=== PATIENT | male | born 1990 | race Caucasian/White ===

== ENCOUNTER 2017-06-14 17:34 | Emergency (ER) | payer BC ==
[2017-06-14] MEDS ORDERED: Sodium Chloride 0.9% 10 ML Syringe FLUSH PRN ×2 (17:52→17:53)
[2017-06-14] MEDS ORDERED: Ondansetron 4 MG/2 ML SDV IVPUSH ONE (17:55)
--- NOTE | 2017-06-14 18:06 | EDM.PDOC ---
ED HPI GENERAL MEDICAL PROBLEM - General Chief Complaint: Gastrointestinal Problem Stated Complaint: VOMITING; DIABETIC Time Seen by Provider: 06/14/17 17:51 Source of Information: Reports: Patient - Related Data Allergies Allergy/AdvReac Type Severity Reaction Status Date / Time erythromycin base Allergy Other Verified 06/14/17 19:24 [From Pediazole] sulfisoxazole Allergy Other Verified 06/14/17 19:24 [From Pediazole] ED ROS GENERAL - Review of Systems Review Of Systems: See Below Constitutional: Reports: No Symptoms HEENT: Reports: No Symptoms Respiratory: Reports: No Symptoms Cardiovascular: Reports: No Symptoms Endocrine: Reports: High Glucose GI/Abdominal: Reports: Nausea, Vomiting Musculoskeletal: Reports: No Symptoms Skin: Reports: No Symptoms Neurological: Reports: No Symptoms ED EXAM, GI/ABD - Physical Exam Exam: See Below Exam Limited By: No Limitations General Appearance: Alert, No Apparent Distress Ears: Hearing Grossly Normal Nose: Normal Inspection Throat/Mouth: Normal Inspection, Normal Lips Head: Atraumatic, Normocephalic Neck: Normal Inspection, Supple, Non-Tender Respiratory/Chest: No Respiratory Distress, Lungs Clear, Normal Breath Sounds Cardiovascular: Regular Rate, Rhythm, No Edema GI/Abdominal Exam: Soft, Non-Tender, No Distention Extremities: Normal Inspection, Non-Tender, No Pedal Edema, Normal Capillary Refill Neurological: Alert, Oriented Psychiatric: Normal Affect, Normal Mood Skin Exam: Warm, Dry, Normal Color Lymphatic: No Adenopathy Course - Vital Signs Last Recorded V/S: Last Vital Signs Temp 97.9 F 06/14/17 20:25 Pulse 97 06/14/17 20:25 Resp 20 06/14/17 20:25 BP 130/68 06/14/17 20:25 Pulse Ox 100 06/14/17 20:25 - Orders/Labs/Meds Orders: Active Orders 24 hr Category Date Time Status Peripheral IV Insertion Adult [OM.PC] Urgent Oth 06/14/17 17:53 Ordered Labs: Laboratory Tests 06/14/17 06/14/17 06/14/17 Range/Units 17:55 18:00 18:00 WBC 11.6 H (4.0-11.0) K/uL RBC 5.24 (4.50-6.50) M/uL Hgb 14.7 (13.0-18.0) g/dL Hct 39.8 L (40.0-54.0) % MCV 76 (76-96) fL MCH 28.1 (27.0-32.0) pg MCHC 36.9 H (31.0-35.0) g/dL RDW 12.6 (11.0-16.0) % Plt Count 217 (150-400) K/uL MPV 10.2 H (6.0-10.0) fL Neut % (Auto) 91.1 H (45.0-70.0) % Lymph % (Auto) 6.5 L (20.0-40.0) % [place] % (Auto) 2.0 L (3.0-10.0) % Eos % (Auto) 0.1 L (1.0-5.0) % Baso % (Auto) 0.3 (0.0-0.5) % Neut # (Auto) 10.53 H (2.00-7.50) K/uL Lymph # (Auto) 0.75 L (1.50-4.00) K/uL [place] # (Auto) 0.23 (0.20-0.80) K/uL Eos # (Auto) 0.01 L (0.04-0.40) K/uL Baso # (Auto) 0.03 (0.02-0.10) K/uL Sodium 140 (136-145) mmol/L Potassium 4.2 (3.5-5.1) mmol/L Chloride 101 (98-107) mmol/L Carbon Dioxide 23.4 (21.0-32.0) mmol/L Anion Gap 19.8 H (5.0-15.0) mmol/L BUN 19 (8-26) mg/dL Creatinine 1.04 (0.70-1.30) mg/dL Est Cr Clr Drug Dosing TNP Estimated GFR (MDRD) > 60 (>60) MLS/MIN BUN/Creatinine Ratio 18.3 (6-25) Glucose 324 H (74-100) mg/dL Calcium 9.5 (8.5-10.1) mg/dL Total Bilirubin 1.1 H (0.0-1.0) mg/dL AST 17 (15-37) U/L ALT 31 (12-78) U/L Alkaline Phosphatase 21 L (46-116) U/L Total Protein 8.1 (6.4-8.2) g/dL Albumin 4.7 (3.4-5.0) g/dL Globulin 3.4 (2.2-4.2) g/dL Albumin/Globulin Ratio 1.4 (0.8-2.0) Urine Color Yellow Urine Appearance Clear (CLEAR) Urine pH 6.0 (5.0-8.0) Ur Specific [place] 1.020 (1.003-1.030) Urine Protein Negative (NEGATIVE) mg/dL Urine Glucose (UA) 500 H (NEGATIVE) mg/dL Urine Ketones >=160 H (NEGATIVE) mg/dL Urine Occult Blood Negative (NEGATIVE) Urine Nitrite Negative (NEGATIVE) Urine Bilirubin Negative (NEGATIVE) Urine Urobilinogen 0.2 (0.2-1.0) E.U./dL Ur Leukocyte Esterase Negative (NEGATIVE) Urine RBC Not seen /HPF Urine WBC Not seen /HPF Meds: Medications Discontinued Medications Generic Name Dose Route Start Last Admin Trade Name Freq PRN Reason Stop Dose Admin Al Hydroxide/Mg Hydroxide 30 ml 06/14/17 19:25 06/14/17 19:26 Gi Cocktail PO 06/14/17 19:26 30 ml ONETIME ONE Administration Pantoprazole Sodium 80 mg/ 100 mls @ 200 mls/hr 06/14/17 18:07 06/14/17 18:25 Sodium Chloride IV 06/14/17 18:36 200 mls/hr .BOLUS ONE Administration Sodium Chloride 1,000 mls @ 125 mls/hr 06/14/17 18:30 06/14/17 18:20 Normal Saline IV 125 mls/hr ASDIRECTED ELSI Administration Ondansetron HCl 4 mg 06/14/17 17:55 06/14/17 18:05 Zofran IVPUSH 06/14/17 17:56 4 mg ONETIME ONE Administration Pantoprazole Sodium Confirm 06/14/17 18:15 06/14/17 19:18 Protonix Iv Administered 06/14/17 18:16 Not Given Dose 80 mg .ROUTE .STK-MED ONE Sodium Chloride 10 ml 06/14/17 17:52 06/14/17 19:21 Saline Flush FLUSH 10 ml ASDIRECTED PRN Administration Vomiting Sodium Chloride 10 ml 06/14/17 17:53 Saline Flush FLUSH ASDIRECTED PRN Keep Vein Open - Re-Assessments/Exams Free Text/Narrative Re-Assessment/Exam: 06/14/17 20:39 Pt feeling better after infusion of 1 Liter Nacl, Protonix of 80 mg IV X1, Zofran 4 mg IV and GI cocktail. Recommend medications as at home. Pt has Zofran for nausea at home and does have Prilosec for GERD. He is diabetic Type 1 and will continue with his insulin as prescribed. He is with his dad and is feeling better. Departure - Departure Time of Disposition: 20:31 Disposition: Home, Self-Care 01 Condition: Good Clinical Impression: Vomiting, Gastroenteritis, Diabetes mellitus - Discharge Information Referrals: PCP,None [Primary Care Provider] - Forms: ED Department Discharge Additional Instructions: Take Zofran and Prilosec as oredered. - Problem List & Annotations (1) Diabetes mellitus SNOMED Code(s): 94188620 Code(s): E11.9 - TYPE 2 DIABETES MELLITUS WITHOUT COMPLICATIONS Status: Acute (2) Gastroenteritis SNOMED Code(s): 04782810 Code(s): K52.9 - NONINFECTIVE GASTROENTERITIS AND COLITIS, UNSPECIFIED Status: Acute (3) Vomiting SNOMED Code(s): 774106545 Code(s): R11.10 - VOMITING, UNSPECIFIED Status: Acute - Problem List Review Problem List Initiated/Reviewed/Updated: Yes - My Orders Last 24 Hours: My Active Orders 06/14/17 17:53 Peripheral IV Insertion Adult [OM.PC] Urgent - Assessment/Plan Last 24 Hours: My Active Orders 06/14/17 17:53 Peripheral IV Insertion Adult [OM.PC] Urgent Plan: Discharge to self care with assist of Dad. Continue with Zofran as needed for nausea and Prilosec daily. Continue with Lantus and insulin as ordered. Return to ER if condition worsens and return to PCP upon return to home.
[2017-06-14] MEDS ORDERED: Pantoprazole 80 MG in Sodium Chloride 0.9% 100 ML IV ONE (18:07)
[2017-06-14] MEDS ORDERED: Pantoprazole 40 MG Vial ONE (18:15)
[2017-06-14] MEDS ORDERED: Sodium Chloride 0.9% 1,000 ML IV SCH (18:30)
[2017-06-14] MEDS ORDERED: GI Cocktail Oral Solution 30 ML PO ONE (19:25)
== END 2017-06-14 20:31 | disposition home or self-care (01) ==
LOC: LB.ED 17:34
DX: K52.9 Noninfective gastroenteritis and colitis, unspecified (principal); K21.9 Gastro-esophageal reflux disease without esophagitis; E10.9 Type 1 diabetes mellitus without complications; Z88.1 Allergy status to other antibiotic agents
CPT/HCPCS: 36415; 80053; 81001; 85025; 96365; 96375; 99284; A9270; C9113; J2405; J7030; J7040; J7050

== ENCOUNTER 2017-06-15 08:06 | Inpatient (IN) | payer BC ==
--- NOTE | 2017-06-15 08:46 | EDM.PDOC ---
ED HPI GENERAL MEDICAL PROBLEM - General Time Seen by Provider: 06/15/17 08:15 Source of Information: Reports: Patient History Limitations: Reports: No Limitations - History of Present Illness INITIAL COMMENTS - FREE TEXT/NARRATIVE: Pt is 26 year old male with IIDM form [facility],has been vomiting since the night before, he had some beer that night and woke up yesterday vomiting and it has not got better. He was diagnosed with GERD 6 months ago and has been on prilosec. Vomiting is constant and contains clear to yellowish green fluid, + bilous vomitus with bitter taste in mouth. He has not been able to eat or keep any food down for about good 24 hrs now. Pt was seen last night and his blood sugar was 325 with normal electrolyte. He was given 1 litre of NS and protonix 80mg IV and Iv zofran and discharged home. Apparently patient has not been feeling any better and his nausea has not cleared. C/o epigastric pain and pain in his lower back from vomiting. No fever or chills. No cough or productive sputum. No URI symptoms. Pt claims last episode of his DKA was on 04/25/17. He did take his lantus 55 units yesterday morning. He took 3 units novolog last night when he noticed his blood sugar was 250.He was on insulin pump for a while and went off as insurance did not cover it. Onset Date: 06/14/17 Duration: Day(s): Location: Reports: Abdomen Quality: Reports: Ache Severity: Moderate Improves with: Reports: None Worsens with: Reports: None Associated Symptoms: Reports: Loss of Appetite, Nausea/Vomiting. Denies: Confusion, Chest Pain, Cough, Diaphoresis, Fever/Chills, Headaches, Rash, Seizure, Shortness of Breath, Syncope, Weakness - Related Data Allergies Allergy/AdvReac Type Severity Reaction Status Date / Time erythromycin base Allergy Other Verified 06/15/17 08:17 [From Pediazole] sulfisoxazole Allergy Other Verified 06/15/17 08:17 [From Pediazole] Home Meds: Home Meds Citalopram Hydrobromide [Celexa] 10 mg PO DAILY 06/14/17 [History] Insulin Aspart [NovoLOG] 2 units SQ TIDMEALS 06/14/17 [History] Insulin Glargine,Hum.Rec.Anlog [Lantus Solostar] 55 units SQ DAILY 06/14/17 [ History] Levocetirizine Dihydrochloride [Xyzal] 5 mg PO DAILY 06/14/17 [History] Ondansetron HCl [Zofran] 4 mg PO TID 06/14/17 [History] atorvaSTATin [Lipitor] 10 mg PO DAILY 06/14/17 [History] Past Medical History Gastrointestinal History: Reports: GERD Neurological History: Reports: Migraines Psychiatric History: Reports: Depression Endocrine/Metabolic History: Reports: Diabetes, Type I Social & Family History - Family History Family Medical History: Noncontributory - Tobacco Use Smoking Status *Q: Never Smoker Second Hand Smoke Exposure: No - Caffeine Use Caffeine Use: Reports: Soda - Alcohol Use Days Per Week of Alcohol Use: 0 - Recreational Drug Use Recreational Drug Use: Yes Drug Use in Last 12 Months: Yes Recreational Drug Type: Reports: Marijuana/Hashish Recreational Drug Use Frequency: Weekly ED ROS GENERAL - Review of Systems Review Of Systems: See Below Constitutional: Reports: Weakness, Fatigue. Denies: Fever, Chills, Malaise HEENT: Denies: Ear Discharge, Ear Pain, Eye Pain, Rhinitis, Throat Pain, Throat Swelling Respiratory: Denies: Shortness of Breath, Wheezing, Pleuritic Chest Pain, Cough , Sputum Cardiovascular: Denies: Chest Pain, Lightheadedness GI/Abdominal: Reports: Abdominal Pain, Nausea, Vomiting. Denies: Constipation, Diarrhea, Distension : Denies: Flank Pain, Frequency, Urgency, Urinary Retention Musculoskeletal: Denies: Joint Pain, Joint Swelling Skin: Denies: Mottled, Pallor, Bruising, Pruritis, Rash Neurological: Denies: Confusion, Dizziness, Paresthesia, Tremors, Difficulty Walking, Weakness Psychiatric: Denies: Anxiety, Confusion ED EXAM, GENERAL - Physical Exam Exam: See Below Exam Limited By: No Limitations General Appearance: Alert, WD/WN, Moderate Distress Eye Exam: Bilateral Eye: EOMI, PERRL Ears: Normal External Exam, Normal Canal, Hearing Grossly Normal, Normal TMs Ear Exam: Bilateral Ear: Auricle Normal, Canal Normal, TM normal Nose: Normal Inspection, Normal Mucosa, No Blood Throat/Mouth: Normal Inspection, Normal Lips, Normal Teeth, Normal Gums, Normal Oropharynx, Normal Voice, No Airway Compromise Head: Atraumatic, Normocephalic Neck: Normal Inspection, Supple, Non-Tender, Full Range of Motion Respiratory/Chest: No Respiratory Distress, Lungs Clear, Normal Breath Sounds, No Accessory Muscle Use, Chest Non-Tender Cardiovascular: Normal Peripheral Pulses, Regular Rate, Rhythm, No Edema, No Gallop, No JVD, No Murmur, No Rub Peripheral Pulses: 2+: Radial (L), Radial (R), Dorsalis Pedis (L), Dorsalis Pedis (R) GI/Abdominal: Normal Bowel Sounds, Soft, No Distention, No Mass, Tender (tender in the epigastric region). No: Guarding, Rigid, Rebound Back Exam: Normal Inspection, Full Range of Motion, NT Extremities: Normal Inspection, Normal Range of Motion, Non-Tender, Normal Capillary Refill, No Pedal Edema Neurological: Alert, Oriented, CN II-XII Intact, Normal Cognition, Normal Gait, Normal Reflexes, No Motor/Sensory Deficits Course - Vital Signs Text/Narrative:: Pt is a 26 year old IDDM presenting with sudden onset of nausea and vomiting since yesterday morning, after having some alcohol and not eating well. He has been having extreme vomiting for 24 hrs now. His CBC shows mild elevation of white count with 81 neutrophilia. His BMp show normal electrolytes. Urine ketones are positive at more than 160 and his serum ketones are positive. His blood sugar today is 375 and has been high since last night. he has taken his lantus insulin and very small dose on 3 unit novolog last night. His CXR and CT abdomen are normal. His amylase and lipase are normal. This does appear like partially treated DKA, as he has had 2 litres of fluids since last night IV, and has taken some dose of his insulin too. He has large anion of 26 up from 19 last night, has positive urine and serum ketones. Plan is to admit patient to inpatient. HE needs IV hydration. Will start him on insluin drip at 0.05 units/kg/hr dosing as his sugars are not too high and also he dose not have electrolyte imbalance. I prefer the drip to be around Will monitor his urinary ketones and BMP every 4hrs. Will keep him NPO until his Ketones clear and sugars stabilized. He has received 80mg of protonix last night , might not need another dose. Will control his nausea with zofran. Last Recorded V/S: Last Vital Signs Temp 97.7 F 06/15/17 09:43 Pulse 63 06/15/17 09:43 Resp 18 06/15/17 09:43 BP 125/54 L 06/15/17 09:43 Pulse Ox 100 06/15/17 09:43 - Orders/Labs/Meds Orders: Active Orders 24 hr Category Date Time Status Patient Status [ADT] Routine ADT 06/15/17 10:20 Ordered Bedrest Bathroom Privileges [RC] ASDIRECTED Care 06/15/17 10:20 Ordered Blood Glucose Check, Bedside [RC] Q1HR Care 06/15/17 10:20 Ordered Height and Weight [RC] DAILY Care 06/15/17 10:20 Ordered Intake and Output [RC] QSHIFT Care 06/15/17 10:22 Ordered Oxygen Therapy [RC] PRN Care 06/15/17 10:20 Ordered VTE/DVT Education [RC] Per Unit Routine Care 06/15/17 10:20 Ordered Vital Signs [RC] Q4H Care 06/15/17 10:20 Ordered Nothing per Oral Now Diet [DIET] Diet 06/15/17 Lunch Ordered Abdomen Pelvis w Cont [CT] Stat Exams 06/15/17 09:12 Ordered Chest 2V [CR] Stat Exams 06/15/17 09:17 Taken BASIC METABOLIC PANEL,BMP [CHEM] Routine Lab 06/15/17 13:20 Ordered KETONES,BLOOD [CHEM] Stat Lab 06/15/17 13:25 Ordered Insulin Regular, Human [NovoLIN R] 100 unit Med 06/15/17 10:30 Ordered Sodium Chloride 0.9% [Normal Saline] 100 ml IV TITRATE Ondansetron [Zofran] Med 06/15/17 10:20 Ordered 4 mg IV Q6H PRN Pantoprazole [ProTONIX IV] 40 mg Med 06/16/17 08:00 Ordered Sodium Chloride 0.9% [Normal Saline] 100 ml IV DAILY Sodium Chloride 0.9% @ 125 MLS/HR (1000ml) Med 06/15/17 10:30 Ordered Sodium Chloride 0.9% [Normal Saline] 1,000 ml IV ASDIRECTED Sodium Chloride 0.9% [Saline Flush] Med 06/15/17 10:20 Ordered 10 ml FLUSH ASDIRECTED PRN Peripheral IV Insertion Adult [OM.PC] Routine Oth 06/15/17 10:20 Ordered Resuscitation Status Routine Resus Stat 06/15/17 10:20 Ordered Medication Orders Insulin Human Regular 100 unit (/ Sodium Chloride) 100 mls @ 0.5 mls/hr IV TITRATE ELSI; 0.05 UNITS/KG/HR PRN Reason: Protocol Pantoprazole Sodium 40 mg/ (Sodium Chloride) 100 mls @ 200 mls/hr IV DAILY ELSI Sodium Chloride (Normal Saline) 1,000 mls @ 125 mls/hr IV ASDIRECTED ELSI Ondansetron HCl (Zofran) 4 mg IV Q6H PRN PRN Reason: Nausea/Vomiting Sodium Chloride (Saline Flush) 10 ml FLUSH ASDIRECTED PRN PRN Reason: Keep Vein Open Labs: Laboratory Tests 06/15/17 06/15/17 06/15/17 Range/Units 08:25 08:25 08:25 WBC 11.1 H (4.0-11.0) K/uL RBC 5.27 (4.50-6.50) M/uL Hgb 14.7 (13.0-18.0) g/dL Hct 40.8 (40.0-54.0) % MCV 77 (76-96) fL MCH 27.9 (27.0-32.0) pg MCHC 36.0 H (31.0-35.0) g/dL RDW 13.0 (11.0-16.0) % Plt Count 212 (150-400) K/uL MPV 10.1 H (6.0-10.0) fL Neut % (Auto) 81.2 H (45.0-70.0) % Lymph % (Auto) 11.8 L (20.0-40.0) % [place] % (Auto) 6.8 (3.0-10.0) % Eos % (Auto) 0.0 L (1.0-5.0) % Baso % (Auto) 0.2 (0.0-0.5) % Neut # (Auto) 9.04 H (2.00-7.50) K/uL Lymph # (Auto) 1.32 L (1.50-4.00) K/uL [place] # (Auto) 0.76 (0.20-0.80) K/uL Eos # (Auto) 0.00 L (0.04-0.40) K/uL Baso # (Auto) 0.02 (0.02-0.10) K/uL ABG pH (7.35-7.45) ABG pCO2 (35-45) mmHg ABG pO2 (80-105) mmHg ABG HCO3 (22-26) mmol/L ABG O2 Saturation (95-98) % ABG Base Excess (-2-2) O2 Delivery Device Sodium 141 (136-145) mmol/L Potassium 4.6 (3.5-5.1) mmol/L Chloride 99 (98-107) mmol/L Carbon Dioxide 20.5 L (21.0-32.0) mmol/L Anion Gap 26.1 H (5.0-15.0) mmol/L BUN 25 D (8-26) mg/dL Creatinine 1.20 (0.70-1.30) mg/dL Est Cr Clr Drug Dosing TNP Estimated GFR (MDRD) > 60 (>60) MLS/MIN BUN/Creatinine Ratio 20.8 (6-25) Glucose 365 H (74-100) mg/dL Calcium 9.5 (8.5-10.1) mg/dL Amylase (25-115) U/L Lipase (73-393) U/L Urine Color Urine Appearance (CLEAR) Urine pH (5.0-8.0) Ur Specific [place] (1.003-1.030) Urine Protein (NEGATIVE) mg/dL Urine Glucose (UA) (NEGATIVE) mg/dL Urine Ketones (NEGATIVE) mg/dL Urine Occult Blood (NEGATIVE) Urine Nitrite (NEGATIVE) Urine Bilirubin (NEGATIVE) Urine Urobilinogen (0.2-1.0) E.U./dL Ur Leukocyte Esterase (NEGATIVE) Urine RBC /HPF Urine WBC /HPF Ur Squamous Epith Cells /HPF Ketones Small (NEGATIVE) 06/15/17 06/15/17 06/15/17 Range/Units 08:25 08:55 09:41 WBC (4.0-11.0) K/uL RBC (4.50-6.50) M/uL Hgb (13.0-18.0) g/dL Hct (40.0-54.0) % MCV (76-96) fL MCH (27.0-32.0) pg MCHC (31.0-35.0) g/dL RDW (11.0-16.0) % Plt Count (150-400) K/uL MPV (6.0-10.0) fL Neut % (Auto) (45.0-70.0) % Lymph % (Auto) (20.0-40.0) % [place] % (Auto) (3.0-10.0) % Eos % (Auto) (1.0-5.0) % Baso % (Auto) (0.0-0.5) % Neut # (Auto) (2.00-7.50) K/uL Lymph # (Auto) (1.50-4.00) K/uL [place] # (Auto) (0.20-0.80) K/uL Eos # (Auto) (0.04-0.40) K/uL Baso # (Auto) (0.02-0.10) K/uL ABG pH 7.42 (7.35-7.45) ABG pCO2 24.1 L (35-45) mmHg ABG pO2 110 H (80-105) mmHg ABG HCO3 15.5 L (22-26) mmol/L ABG O2 Saturation 99 H (95-98) % ABG Base Excess -9 L (-2-2) O2 Delivery Device Room air Sodium (136-145) mmol/L Potassium (3.5-5.1) mmol/L Chloride (98-107) mmol/L Carbon Dioxide (21.0-32.0) mmol/L Anion Gap (5.0-15.0) mmol/L BUN (8-26) mg/dL Creatinine (0.70-1.30) mg/dL Est Cr Clr Drug Dosing Estimated GFR (MDRD) (>60) MLS/MIN BUN/Creatinine Ratio (6-25) Glucose (74-100) mg/dL Calcium (8.5-10.1) mg/dL Amylase 32 (25-115) U/L Lipase 35 L (73-393) U/L Urine Color Yellow Urine Appearance Clear (CLEAR) Urine pH 5.0 (5.0-8.0) Ur Specific [place] 1.025 (1.003-1.030) Urine Protein Negative (NEGATIVE) mg/dL Urine Glucose (UA) 500 H (NEGATIVE) mg/dL Urine Ketones >=160 H (NEGATIVE) mg/dL Urine Occult Blood Negative (NEGATIVE) Urine Nitrite Negative (NEGATIVE) Urine Bilirubin Negative (NEGATIVE) Urine Urobilinogen 0.2 (0.2-1.0) E.U./dL Ur Leukocyte Esterase Negative (NEGATIVE) Urine RBC Not seen /HPF Urine WBC Not seen /HPF Ur Squamous Epith Cells Occasional /HPF Ketones (NEGATIVE) Meds: Medications Generic Name Dose Route Start Last Admin Trade Name Freq PRN Reason Stop Dose Admin Insulin Human Regular 100 unit 100 mls @ 0.5 mls/hr 06/15/17 10:30 / Sodium Chloride IV TITRATE ELSI Protocol 0.05 UNITS/KG/HR Pantoprazole Sodium 40 mg/ 100 mls @ 200 mls/hr 06/16/17 08:00 Sodium Chloride IV DAILY ELSI Sodium Chloride 1,000 mls @ 125 mls/hr 06/15/17 10:30 Normal Saline IV ASDIRECTED ELSI Ondansetron HCl 4 mg 06/15/17 10:20 Zofran IV Q6H PRN Nausea/Vomiting Sodium Chloride 10 ml 06/15/17 10:20 Saline Flush FLUSH ASDIRECTED PRN Keep Vein Open Discontinued Medications Generic Name Dose Route Start Last Admin Trade Name Freq PRN Reason Stop Dose Admin Sodium Chloride 1,000 mls @ 1,000 mls/hr 06/15/17 09:13 Normal Saline IV 06/15/17 10:12 .BOLUS ONE Metoclopramide HCl Confirm 06/15/17 08:47 Reglan Administered 06/15/17 08:48 Dose 10 mg .ROUTE .STK-MED ONE Departure - Departure Time of Disposition: 10:30 Disposition: Admitted As Inpatient 67 Condition: Fair Clinical Impression: Diabetic ketosis, IDDM (insulin dependent diabetes mellitus) - Discharge Information Referrals: PCP,None [Primary Care Provider] - - Problem List & Annotations (1) Vomiting SNOMED Code(s): 811769803 Code(s): R11.10 - VOMITING, UNSPECIFIED Status: Acute Current Visit: No (2) Diabetic ketosis SNOMED Code(s): 913169895 Code(s): E13.10 - OTH DIABETES MELLITUS WITH KETOACIDOSIS WITHOUT COMA Status: Acute Current Visit: Yes (3) IDDM (insulin dependent diabetes mellitus) SNOMED Code(s): 73428616 Code(s): E11.9 - TYPE 2 DIABETES MELLITUS WITHOUT COMPLICATIONS; Z79.4 - PENITENTIARY (CURRENT) USE OF INSULIN Status: Acute Current Visit: Yes - Problem List Review Problem List Initiated/Reviewed/Updated: Yes - My Orders Last 24 Hours: My Active Orders 06/15/17 09:12 Abdomen Pelvis w Cont [CT] Stat 06/15/17 09:17 Chest 2V [CR] Stat 06/15/17 10:20 Patient Status [ADT] Routine Bedrest Bathroom Privileges [RC] ASDIRECTED Blood Glucose Check, Bedside [RC] Q1HR Height and Weight [RC] DAILY Oxygen Therapy [RC] PRN VTE/DVT Education [RC] Per Unit Routine Vital Signs [RC] Q4H Ondansetron [Zofran] 4 mg IV Q6H PRN Sodium Chloride 0.9% [Saline Flush] 10 ml FLUSH ASDIRECTED PRN Peripheral IV Insertion Adult [OM.PC] Routine Resuscitation Status Routine 06/15/17 10:22 Intake and Output [RC] QSHIFT 06/15/17 10:30 Insulin Regular, Human [NovoLIN R] 100 unit Sodium Chloride 0.9% [Normal Saline] 100 ml IV TITRATE Sodium Chloride 0.9% @ 125 MLS/HR (1000ml) Sodium Chloride 0.9% [Normal Saline] 1,000 ml IV ASDIRECTED 06/15/17 13:20 BASIC METABOLIC PANEL,BMP [CHEM] Routine 06/15/17 13:25 KETONES,BLOOD [CHEM] Stat 06/15/17 Lunch Nothing per Oral Now Diet [DIET] 06/16/17 08:00 Pantoprazole [ProTONIX IV] 40 mg Sodium Chloride 0.9% [Normal Saline] 100 ml IV DAILY - Assessment/Plan Admission H&P: Please use this note as an admission H&P Last 24 Hours: My Active Orders 06/15/17 09:12 Abdomen Pelvis w Cont [CT] Stat 06/15/17 09:17 Chest 2V [CR] Stat 06/15/17 10:20 Patient Status [ADT] Routine Bedrest Bathroom Privileges [RC] ASDIRECTED Blood Glucose Check, Bedside [RC] Q1HR Height and Weight [RC] DAILY Oxygen Therapy [RC] PRN VTE/DVT Education [RC] Per Unit Routine Vital Signs [RC] Q4H Ondansetron [Zofran] 4 mg IV Q6H PRN Sodium Chloride 0.9% [Saline Flush] 10 ml FLUSH ASDIRECTED PRN Peripheral IV Insertion Adult [OM.PC] Routine Resuscitation Status Routine 06/15/17 10:22 Intake and Output [RC] QSHIFT 06/15/17 10:30 Insulin Regular, Human [NovoLIN R] 100 unit Sodium Chloride 0.9% [Normal Saline] 100 ml IV TITRATE Sodium Chloride 0.9% @ 125 MLS/HR (1000ml) Sodium Chloride 0.9% [Normal Saline] 1,000 ml IV ASDIRECTED 06/15/17 13:20 BASIC METABOLIC PANEL,BMP [CHEM] Routine 06/15/17 13:25 KETONES,BLOOD [CHEM] Stat 06/15/17 Lunch Nothing per Oral Now Diet [DIET] 06/16/17 08:00 Pantoprazole [ProTONIX IV] 40 mg Sodium Chloride 0.9% [Normal Saline] 100 ml IV DAILY Assessment:: Diabetic ketosis with IDDM with Intractable vomiting Plan: Pt is a 26 year old IDDM presenting with sudden onset of nausea and vomiting since yesterday morning, after having some alcohol and not eating well. He has been having extreme vomiting for 24 hrs now. His CBC shows mild elevation of white count with 81 neutrophilia. His BMp show normal electrolytes. Urine ketones are positive at more than 160 and his serum ketones are positive. His blood sugar today is 375 and has been high since last night. he has taken his lantus insulin and very small dose on 3 unit novolog last night. His CXR and CT abdomen are normal. His amylase and lipase are normal. This does appear like partially treated DKA, as he has had 2 litres of fluids since last night IV, and has taken some dose of his insulin too. He has large anion of 26 up from 19 last night, has positive urine and serum ketones. Plan is to admit patient to inpatient. HE needs IV hydration. Will start him on insluin drip at 0.05 units/kg/hr dosing as his sugars are not too high and also he dose not have electrolyte imbalance. I prefer the drip to be around Will monitor his urinary ketones and BMP every 4hrs. Will keep him NPO until his Ketones clear and sugars stabilized. He has received 80mg of protonix last night , might not need another dose. Will control his nausea with zofran.
[2017-06-15] MEDS ORDERED: Metoclopramide 10 MG/2 ML SDV ONE (08:47)
[2017-06-15] MEDS ORDERED: Sodium Chloride 0.9% 1,000 ML IV ONE (09:13)
[2017-06-15] MEDS ORDERED: Sodium Chloride 0.9% 10 ML Syringe FLUSH PRN (10:20)
[2017-06-15] MEDS ORDERED: Sodium Chloride 0.9% 1,000 ML IV SCH (10:30)
[2017-06-15] MEDS ORDERED: Insulin Regular, Human 100 Units/ML 3 ML Vial ONE (10:45)
--- NOTE | 2017-06-15 10:50 | CR ---
DATE OF SERVICE: 06/15/17 CLINICAL DATA: mild elevation of white count with DKA PA AND LATERAL CHEST: Normal exam. [id number] MTDD
--- NOTE | 2017-06-15 10:55 | CT ---
DATE OF SERVICE: 06/15/17 CLINICAL DATA: Abdominal pain with DKA ENHANCED ABDOMEN AND PELVIC CT: Multislice acquisition through the abdomen and pelvis with IV, but without oral contrast was performed. No priors. The lung bases are clear. There is minimal diffuse fatty infiltration of the liver. No focal hepatic lesions. The gallbladder appears normal. No biliary duct dilatation. The spleen appears normal. The pancreas appears normal. The right and left adrenals appear normal. The right and left kidneys appear normal and enhance symmetrically. No hydronephrosis or hydroureter. The bladder is fluid-filled. It appears normal. The appendix is not dilated. No evidence of appendicitis. There is a moderate amount of stool present throughout the colon. No free air. No free fluid. No dilated loops of bowel. No adenopathy. No aortic aneurysm or dissection. IMPRESSION: No acute abnormalities. [id number] [facility]
[2017-06-15] MEDS ORDERED: Pantoprazole 40 MG Vial ONE (11:19)
[2017-06-15] MEDS: Ondansetron 4 MG/2 ML SDV IV PRN (11:30)
[2017-06-15] MEDS: Dextrose 5%-0.9% NaCl 1,000 ML IV SCH (13:10)
[2017-06-15] MEDS ORDERED: Sucralfate 1 GM Tab ONE ×2 (13:56→19:52)
[2017-06-16] MEDS ORDERED: Insulin Regular, Human 100 Units/ML 3 ML Vial SUBCUT ONE (00:28)
[2017-06-16] MEDS ORDERED: Insulin Regular, Human 100 Units/ML 3 ML Vial ONE (01:10)
[2017-06-16] MEDS: Dextrose 5%-0.9% NaCl 1,000 ML IV SCH (01:18)
[2017-06-16] MEDS ORDERED: Sucralfate 1 GM Tab ONE (07:25)
[2017-06-16] MEDS: Ondansetron 4 MG/2 ML SDV IV PRN ×2 (07:38→15:29)
[2017-06-16] MEDS ORDERED: Pantoprazole 40 MG in Sodium Chloride 0.9% 100 ML IV SCH (08:00)
[2017-06-16] MEDS ORDERED: Pantoprazole 40 MG Vial IVPUSH SCH (08:00)
[2017-06-16] MEDS: Sucralfate 1 GM Tab PO SCH ×3 (08:15→17:42)
[2017-06-16] MEDS ORDERED: Metoclopramide 10 MG/2 ML SDV IVPUSH ONE (08:34)
[2017-06-16] MEDS ORDERED: Insulin Detemir 100 Units/ML 3 ML Pen ONE (09:00)
[2017-06-16] MEDS ORDERED: Insulin Aspart 100 Units/ML 3 ML Pen ONE (09:00)
[2017-06-16] MEDS: Insulin Detemir 100 Units/ML 3 ML Pen SUBCUT SCH (09:05)
--- NOTE | 2017-06-16 09:07 | PCM.PN ---
- General Info Date of Service: 06/16/17 Subjective Update: Pt has had good night. Slept well, Insulin drip stopped. He woke up in the morning and has been wretching and trying to vomitus. More on wretching but no nausea. Functional Status: Reports: Pain Controlled, Tolerating Diet, Ambulating, Urinating - Review of Systems General: Denies: Fever, Weakness, Night Sweats, Appetite HEENT: Denies: Headaches, Post Nasal Drip, Sinus Congestion, Sore Throat, Visual Changes Pulmonary: Denies: Shortness of Breath, Pleuritic Chest Pain, Cough, Sputum, Hemoptysis Cardiovascular: Denies: Chest Pain, Palpitations Gastrointestinal: Reports: Nausea, Vomiting. Denies: Abdominal Pain Genitourinary: Denies: Burning, Pain, Retention, Flank Pain Musculoskeletal: Denies: Joint Pain, Joint Swelling Skin: Denies: Bruising, Pruritis, Rash - Patient Data Vitals - Most Recent: Last Vital Signs Temp 99.3 F 06/16/17 01:27 Pulse 65 06/16/17 01:27 Resp 16 06/16/17 01:27 BP 119/61 06/16/17 01:27 Pulse Ox 97 06/16/17 01:27 Weight - Most Recent: 97.522 kg I&O - Last 24 Hours: Intake & Output 06/15/17 06/16/17 06/16/17 22:59 06:59 14:59 Intake Total 840 1430 Output Total 1800 350 Balance -960 1080 Lab Results Last 24 Hours: Laboratory Results - last 24 hr 06/15/17 06/15/17 06/15/17 Range/Units 11:16 12:12 13:11 Sodium (136-145) mmol/L Potassium (3.5-5.1) mmol/L Chloride (98-107) mmol/L Carbon Dioxide (21.0-32.0) mmol/L Anion Gap (5.0-15.0) mmol/L BUN (8-26) mg/dL Creatinine (0.70-1.30) mg/dL Est Cr Clr Drug Dosing mL/min Estimated GFR (MDRD) (>60) MLS/MIN BUN/Creatinine Ratio (6-25) Glucose (74-100) mg/dL POC Glucose 276 H 244 H 224 H (74-110) mg/dL Calcium (8.5-10.1) mg/dL Ketones (NEGATIVE) 06/15/17 06/15/17 06/15/17 Range/Units 13:30 13:30 14:03 Sodium 144 (136-145) mmol/L Potassium 4.0 (3.5-5.1) mmol/L Chloride 105 (98-107) mmol/L Carbon Dioxide 21.2 (21.0-32.0) mmol/L Anion Gap 21.8 H (5.0-15.0) mmol/L BUN 23 (8-26) mg/dL Creatinine 1.21 (0.70-1.30) mg/dL Est Cr Clr Drug Dosing 108.51 mL/min Estimated GFR (MDRD) > 60 (>60) MLS/MIN BUN/Creatinine Ratio 19.0 (6-25) Glucose 236 H D (74-100) mg/dL POC Glucose 237 H (74-110) mg/dL Calcium 8.7 (8.5-10.1) mg/dL Ketones Small (NEGATIVE) 06/15/17 06/15/17 06/15/17 Range/Units 14:47 16:02 16:50 Sodium 141 (136-145) mmol/L Potassium 4.5 (3.5-5.1) mmol/L Chloride 103 (98-107) mmol/L Carbon Dioxide 20.7 L (21.0-32.0) mmol/L Anion Gap 21.8 H (5.0-15.0) mmol/L BUN 23 (8-26) mg/dL Creatinine 1.16 (0.70-1.30) mg/dL Est Cr Clr Drug Dosing 113.18 mL/min Estimated GFR (MDRD) > 60 (>60) MLS/MIN BUN/Creatinine Ratio 19.8 (6-25) Glucose 268 H (74-100) mg/dL POC Glucose 237 H 248 H (74-110) mg/dL Calcium 8.7 (8.5-10.1) mg/dL Ketones Small (NEGATIVE) 06/15/17 06/15/17 06/15/17 Range/Units 16:59 18:05 19:13 Sodium (136-145) mmol/L Potassium (3.5-5.1) mmol/L Chloride (98-107) mmol/L Carbon Dioxide (21.0-32.0) mmol/L Anion Gap (5.0-15.0) mmol/L BUN (8-26) mg/dL Creatinine (0.70-1.30) mg/dL Est Cr Clr Drug Dosing mL/min Estimated GFR (MDRD) (>60) MLS/MIN BUN/Creatinine Ratio (6-25) Glucose (74-100) mg/dL POC Glucose 240 H 216 H 201 H (74-110) mg/dL Calcium (8.5-10.1) mg/dL Ketones (NEGATIVE) 06/15/17 06/15/17 06/15/17 Range/Units 21:00 21:11 21:51 Sodium 139 (136-145) mmol/L Potassium 3.9 (3.5-5.1) mmol/L Chloride 103 (98-107) mmol/L Carbon Dioxide 23.2 (21.0-32.0) mmol/L Anion Gap 16.7 H (5.0-15.0) mmol/L BUN 20 (8-26) mg/dL Creatinine 1.06 (0.70-1.30) mg/dL Est Cr Clr Drug Dosing 123.86 mL/min Estimated GFR (MDRD) > 60 (>60) MLS/MIN BUN/Creatinine Ratio 18.9 (6-25) Glucose 223 H (74-100) mg/dL POC Glucose 203 H 189 H (74-110) mg/dL Calcium 8.5 (8.5-10.1) mg/dL Ketones Negative (NEGATIVE) 06/15/17 06/16/17 06/16/17 Range/Units 23:13 00:05 02:03 Sodium (136-145) mmol/L Potassium (3.5-5.1) mmol/L Chloride (98-107) mmol/L Carbon Dioxide (21.0-32.0) mmol/L Anion Gap (5.0-15.0) mmol/L BUN (8-26) mg/dL Creatinine (0.70-1.30) mg/dL Est Cr Clr Drug Dosing mL/min Estimated GFR (MDRD) (>60) MLS/MIN BUN/Creatinine Ratio (6-25) Glucose (74-100) mg/dL POC Glucose 181 H 175 H 148 H (74-110) mg/dL Calcium (8.5-10.1) mg/dL Ketones (NEGATIVE) 06/16/17 06/16/17 06/16/17 Range/Units 02:56 03:54 04:47 Sodium (136-145) mmol/L Potassium (3.5-5.1) mmol/L Chloride (98-107) mmol/L Carbon Dioxide (21.0-32.0) mmol/L Anion Gap (5.0-15.0) mmol/L BUN (8-26) mg/dL Creatinine (0.70-1.30) mg/dL Est Cr Clr Drug Dosing mL/min Estimated GFR (MDRD) (>60) MLS/MIN BUN/Creatinine Ratio (6-25) Glucose (74-100) mg/dL POC Glucose 112 H 103 102 (74-110) mg/dL Calcium (8.5-10.1) mg/dL Ketones (NEGATIVE) 06/16/17 Range/Units 07:20 Sodium 140 (136-145) mmol/L Potassium 3.7 (3.5-5.1) mmol/L Chloride 104 (98-107) mmol/L Carbon Dioxide 25.4 (21.0-32.0) mmol/L Anion Gap 14.3 (5.0-15.0) mmol/L BUN 19 (8-26) mg/dL Creatinine 0.92 (0.70-1.30) mg/dL Est Cr Clr Drug Dosing 142.71 mL/min Estimated GFR (MDRD) > 60 (>60) MLS/MIN BUN/Creatinine Ratio 20.7 (6-25) Glucose 130 H D (74-100) mg/dL POC Glucose (74-110) mg/dL Calcium 8.5 (8.5-10.1) mg/dL Ketones Negative (NEGATIVE) Med Orders - Current: Current Medications Sodium Chloride (Normal Saline) 1,000 mls @ 125 mls/hr IV ASDIRECTED ELSI Last Admin: 06/15/17 11:43 Dose: 125 mls/hr Insulin Human Regular 100 unit (/ Sodium Chloride) 100 mls @ 4.87 mls/hr IV TITRATE ELSI; 0.05 UNITS/KG/HR PRN Reason: Protocol Last Admin: 06/15/17 17:10 Dose: 0.04 units/kg/hr, 4 mls/hr Dextrose/Sodium Chloride (Dextrose 5%-Normal Saline) 1,000 mls @ 125 mls/hr IV ASDIRECTED [facility] Last Admin: 06/16/17 01:18 Dose: 125 mls/hr Insulin Detemir (Levemir) 55 unit SUBCUT DAILY [facility] Ondansetron HCl (Zofran) 4 mg IV Q6H PRN PRN Reason: Nausea/Vomiting Last Admin: 06/16/17 07:38 Dose: 4 mg Pantoprazole Sodium (Protonix Iv) 40 mg IVPUSH DAILY [facility] Stop: 06/16/17 18:00 Last Admin: 06/16/17 07:33 Dose: 40 mg Sodium Chloride (Saline Flush) 10 ml FLUSH ASDIRECTED PRN PRN Reason: Keep Vein Open Sucralfate (Carafate) 1 gm PO QIDACANDBED [facility] Stop: 06/16/17 18:00 Last Admin: 06/16/17 08:15 Dose: 1 gm Discontinued Medications Sodium Chloride (Normal Saline) 1,000 mls @ 1,000 mls/hr IV .BOLUS ONE Stop: 06/15/17 10:12 Last Admin: 06/15/17 09:30 Dose: 1,000 mls/hr Insulin Human Regular 100 unit (/ Sodium Chloride) 100 mls @ 4.87 mls/hr IV TITRATE ELSI; 0.05 UNITS/KG/HR PRN Reason: Protocol Pantoprazole Sodium 40 mg/ (Sodium Chloride) 100 mls @ 200 mls/hr IV DAILY [facility] Insulin Human Regular (Humulin R) 4 unit SUBCUT ONETIME ONE PRN Reason: Protocol Stop: 06/16/17 00:29 Last Admin: 06/16/17 01:10 Dose: 4 unit Insulin Human Regular (Humulin R) 300 unit .ROUTE .STK-MED ONE Stop: 06/15/17 10:46 Insulin Human Regular (Humulin R) 300 unit .ROUTE .STK-MED ONE Stop: 06/16/17 01:11 Metoclopramide HCl (Reglan) Confirm Administered Dose 10 mg .ROUTE .STK-MED ONE Stop: 06/15/17 08:48 Last Admin: 06/15/17 09:30 Dose: 4 mg Metoclopramide HCl (Reglan) 10 mg IVPUSH ONETIME ONE Stop: 06/16/17 08:35 Pantoprazole Sodium (Protonix Iv) Confirm Administered Dose 40 mg .ROUTE .[employer] -MED ONE Stop: 06/15/17 11:20 Last Admin: 06/15/17 11:30 Dose: 40 mg Sucralfate (Carafate) Confirm Administered Dose 1 gm .ROUTE .STK-MED ONE Stop: 06/15/17 13:57 Last Admin: 06/15/17 14:00 Dose: 1 gm Sucralfate (Carafate) Confirm Administered Dose 1 gm .ROUTE .STK-MED ONE Stop: 06/15/17 19:53 Last Admin: 06/15/17 20:00 Dose: 1 gm Sucralfate (Carafate) Confirm Administered Dose 1 gm .ROUTE .[employer]MED ONE Stop: 06/16/17 07:26 Last Admin: 06/16/17 08:45 Dose: Not Given - Exam General: Alert, Oriented HEENT: Pupils Equal, Pupils Reactive, EOMI, Mucous Membr. Moist/[place] Neck: Supple Lungs: Clear to Auscultation, Normal Respiratory Effort Cardiovascular: Regular Rate, Regular Rhythm GI/Abdominal Exam: Normal Bowel Sounds, Soft, No Abnormal Bruit, No Mass, Tender (Tender over the epigastrium) Back Exam: Normal Inspection, Full Range of Motion - Problem List & Annotations (1) Vomiting SNOMED Code(s): 651171612 Code(s): R11.10 - VOMITING, UNSPECIFIED Status: Acute Current Visit: No (2) Diabetic ketosis SNOMED Code(s): 714446252 Code(s): E13.10 - OTH DIABETES MELLITUS WITH KETOACIDOSIS WITHOUT COMA Status: Acute Current Visit: Yes (3) IDDM (insulin dependent diabetes mellitus) SNOMED Code(s): 88742586 Code(s): E11.9 - TYPE 2 DIABETES MELLITUS WITHOUT COMPLICATIONS; 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 Status: Acute Current Visit: Yes - Problem List Review Problem List Initiated/Reviewed/Updated: Yes - My Orders Last 24 Hours: My Active Orders 06/15/17 10:30 Sodium Chloride 0.9% [Normal Saline] 1,000 ml IV ASDIRECTED 06/15/17 11:22 Insulin Regular, Human [HumuLIN R] 100 unit Sodium Chloride 0.9% [Normal Saline] 99 ml IV TITRATE 06/15/17 13:30 Dextrose 5%-0.9% NaCl [Dextrose 5%-Normal Saline] 1,000 ml IV ASDIRECTED 06/16/17 07:00 Sucralfate [Carafate] 1 gm PO QIDACANDBED 06/16/17 08:00 Pantoprazole [ProTONIX IV] 40 mg IVPUSH DAILY 06/16/17 09:00 Insulin Detemir [Levemir] 55 unit SUBCUT DAILY 06/16/17 Lunch Clear Liquid Diet [DIET] - Assessment Assessment:: Resolved DKA Vomiting with GERD - Plan Plan:: Pt's Blood sugars finally started to drop under 200 last night. his insulin drip was discontinue once there was sustained drop in the sugars under 200 and received Subcut Novolog 4 units 2 hrs before stopping the drip. Pt Morning BMP shows normal electrolytes and his Anion Gap has cleared and serum ketones are negative. his morning Blood sugar is 130. Apparently patient is out of DKA. He woke today and has been wretching since he is awake, not sure if this is gastritis, GERD related or alcohol induced dyspepsia. he is on PPI, carafate and zofran. he did recieve Reglan 10mg IV. will let him rest for a while, and start him on clear liquid. his morning long acting insulin has been given now( levemir 55unit S/c).
[2017-06-16] MEDS ORDERED: Insulin Aspart 100 Units/ML 3 ML Pen SUBCUT ONE (12:52)
[2017-06-16] MEDS ORDERED: Promethazine 25 MG/ML SDV ONE (16:48)
[2017-06-16] MEDS ORDERED: Promethazine 25 MG in Sodium Chloride 0.9% 50 ML IV STA (16:52)
[2017-06-16] MEDS ORDERED: GI Cocktail Oral Solution 30 ML PO ONE (16:53)
[2017-06-16] MEDS ORDERED: Aluminum Hydroxide/Magnesium Hydroxide/Simethicone Susp 30 ML Cup ONE (17:30)
[2017-06-16] MEDS ORDERED: Lidocaine 2% Viscous Solution 15 ML Cup ONE (17:30)
[2017-06-16] MEDS: Insulin Aspart 100 Units/ML 3 ML Pen SUBCUT SCH ×2 (18:10→20:13)
[2017-06-17] MEDS ORDERED: Lidocaine 2% Viscous Solution 15 ML Cup ONE (06:11)
[2017-06-17] MEDS ORDERED: Aluminum Hydroxide/Magnesium Hydroxide/Simethicone Susp 30 ML Cup ONE (06:12)
[2017-06-17] MEDS ORDERED: Atropine/Hyoscyamine/PHENobarbital/Scopolamine Elixir 10 ML UD PO ONE (06:30)
[2017-06-17] MEDS ORDERED: Promethazine 25 MG in Sodium Chloride 0.9% 50 ML IV ONE (07:00)
[2017-06-17] MEDS ORDERED: GI Cocktail Oral Solution 30 ML PO ONE (07:00)
[2017-06-17] MEDS: Insulin Detemir 100 Units/ML 3 ML Pen SUBCUT SCH (08:02)
[2017-06-17] MEDS: Insulin Aspart 100 Units/ML 3 ML Pen SUBCUT SCH (08:08)
[2017-06-17] MEDS ORDERED: Ondansetron 4 MG Tab.DIS ONE (08:20)
--- NOTE | 2017-06-17 08:22 | PCM.DCSUM1 ---
Discharge Summary - Hospital Course Free Text/Narrative:: Pt was admitted with intractable vomiting on 06/15/17 with Diabetic ketosis.Pt had been taking his long acting insulin only. His initial workup was negative for infection. His CXR and CT abdomen were negative. His initial amylase and lipase have been negative.He was in Hyperglycemia with Diabetic ketosis. He did receive 2 litres of NS bolus followed by NS at 150/hr and also was started on insulin drip and had serial anion gap, BMP and serum ketone monitored. his blood sugar did improve over the day and on the night of 06/15/17 his sugars started to drop under 250 and he had wide anion gap and positive serum ketones hence his IV fluids were changed to D5NS. By 06/16/17 his serum ketone were negative and his anion gap has resolved. Pt insulin drip was stopped 2 hrs after he received his Sub cutaneous inuslin. 06/16/17: Pt serum ketones were negative and his BMP was normal. Pt was started on clear liquids. Pt had uneventful night. He woke up on 06/16/17 morning and started having wretching vomiting. Pt has been on reglan, carafate, zofran for his nausea and vomiting.His vomiting was more of wretching , he was tried on IV phenergan 25mg and some GI cocktail,which did help. All day he was able to consume clear liquids and felt better. He had unevetful night.Blood sugars stable and under 200. 06/17/17 Pt had uneventful night. His blood sugar today morning is 178. His BMP is stable other than his potassium is slightly low. His BMp is stable, his creat is 0.84. his cbc is normal. Apparently patient has a pattern of vomiting which appear like cyclical vomiting. But he might have some Upper GI pathology which might be triggering this , he might have simple alcoholic gastritis, GERD , oesophagitis or hiatal hernia or psychogenic or cyclical vomiting. His Dyspepsia needs to be further worked. 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 He rests well all night. All this started after consuming alcohol 3 days ago, but I doubt this to be alcohol induced gastritis. Pt vitals and labs appear normal.He is not in DKA and His morning CBC and BMp are normal. Pt was offered if he would preferred transferred to a facility where he could have further workup. Pt feels fine to go home. I do feels he is stable to go back home and have work up on his dyspepsia done by his primary cre. Pt has been discharged on phenergan 25mg TID and zofran 4mg tid.Advised to stay on clear liquids. Followup with his Primary care tomorrow. Pt advised to call his Primary office today and set up appointment. Pt understands and agree with the plan. Brief History: Pt presented to the emergency room withintractable vomiting with diabetic ketosis. 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 Status: Acute Current Visit: Yes - Patient Instructions Diet: Clear Liquid Diet Fluid Restriction: 1500 mL Activity: As Tolerated Driving: Do Not Drive - Discharge Plan Home Medications: Home Meds Citalopram Hydrobromide [Celexa] 10 mg PO DAILY 06/14/17 [History] Insulin Aspart [NovoLOG] 2 units SQ TIDMEALS 06/14/17 [History] Insulin Glargine,Hum.Rec.Anlog [Lantus Solostar] 55 units SQ DAILY 06/14/17 [ History] Levocetirizine Dihydrochloride [Xyzal] 5 mg PO DAILY 06/14/17 [History] Ondansetron HCl [Zofran] 4 mg PO TID 06/14/17 [History] atorvaSTATin [Lipitor] 10 mg PO DAILY 06/14/17 [History] Insulin Detemir [Levemir] 55 unit SUBCUT DAILY pen 06/17/17 [Rx] Patient Handouts: Diabetic Ketoacidosis, Promethazine tablets, Nausea and Vomiting, Adult Referrals: PCP,None [Primary Care Provider] - - Discharge Summary/Plan Comment DC Time >30 min.: Yes Discharge Summary/Plan Comment: Clear liquid diet Phenergan 25mg TID Zofran 4mg TID Followup with PCP [facility] - General Info Functional Status: Reports: Tolerating Diet - Review of Systems General: Denies: Fever, Weakness HEENT: Denies: Headaches Pulmonary: Denies: Shortness of Breath, Sputum, Hemoptysis Cardiovascular: Denies: Chest Pain, Lightheadedness Gastrointestinal: Reports: Vomiting. Denies: Abdominal Pain, Difficulty Swallowing, Hematochezia, Nausea Genitourinary: Denies: Frequency, Flank Pain Musculoskeletal: Denies: Joint Pain, Joint Swelling Skin: Denies: Bruising, Rash Neurological: Denies: Confusion, Dizziness, Headache, Weakness Psychiatric: Denies: Confusion, Depression - Patient Data Vitals - Most Recent: Last Vital Signs Temp 99.2 F 06/17/17 07:30 Pulse 75 06/17/17 07:30 Resp 14 06/17/17 07:30 BP 144/97 H 06/17/17 07:30 Pulse Ox 100 06/16/17 20:17 Weight - Most Recent: 97.522 kg I&O - Last 24 hours: Intake & Output 06/16/17 06/17/17 06/17/17 22:59 06:59 14:59 Intake Total 2902 120 Output Total 1410 1225 Balance 1492 -1105 Lab Results - Last 24 hrs: Laboratory Results - last 24 hr 06/16/17 06/16/17 06/16/17 Range/Units 10:55 16:02 19:07 WBC (4.0-11.0) K/uL RBC (4.50-6.50) M/uL Hgb (13.0-18.0) g/dL Hct (40.0-54.0) % MCV (76-96) fL MCH (27.0-32.0) pg MCHC (31.0-35.0) g/dL RDW (11.0-16.0) % Plt Count (150-400) K/uL MPV (6.0-10.0) fL Neut % (Auto) (45.0-70.0) % Lymph % (Auto) (20.0-40.0) % [place] % (Auto) (3.0-10.0) % Eos % (Auto) (1.0-5.0) % Baso % (Auto) (0.0-0.5) % Neut # (Auto) (2.00-7.50) K/uL Lymph # (Auto) (1.50-4.00) K/uL [place] # (Auto) (0.20-0.80) K/uL Eos # (Auto) (0.04-0.40) K/uL Baso # (Auto) (0.02-0.10) K/uL Sodium (136-145) mmol/L Potassium (3.5-5.1) mmol/L Chloride (98-107) mmol/L Carbon Dioxide (21.0-32.0) mmol/L Anion Gap (5.0-15.0) mmol/L BUN (8-26) mg/dL Creatinine (0.70-1.30) mg/dL Est Cr Clr Drug Dosing mL/min Estimated GFR (MDRD) (>60) MLS/MIN BUN/Creatinine Ratio (6-25) Glucose (74-100) mg/dL POC Glucose 190 H 157 H 298 H (74-110) mg/dL Calcium (8.5-10.1) mg/dL Total Bilirubin (0.0-1.0) mg/dL AST (15-37) U/L ALT (12-78) U/L Alkaline Phosphatase (46-116) U/L Total Protein (6.4-8.2) g/dL Albumin (3.4-5.0) g/dL Globulin (2.2-4.2) g/dL Albumin/Globulin Ratio (0.8-2.0) 06/17/17 06/17/17 06/17/17 Range/Units 07:13 07:15 07:15 WBC 5.8 D (4.0-11.0) K/uL RBC 5.06 (4.50-6.50) M/uL Hgb 14.1 (13.0-18.0) g/dL Hct 38.8 L (40.0-54.0) % MCV 77 (76-96) fL MCH 27.9 (27.0-32.0) pg MCHC 36.3 H (31.0-35.0) g/dL RDW 12.7 (11.0-16.0) % Plt Count 175 (150-400) K/uL MPV 9.6 (6.0-10.0) fL Neut % (Auto) 58.3 (45.0-70.0) % Lymph % (Auto) 31.0 (20.0-40.0) % [place] % (Auto) 8.1 (3.0-10.0) % Eos % (Auto) 2.1 (1.0-5.0) % Baso % (Auto) 0.5 (0.0-0.5) % Neut # (Auto) 3.38 (2.00-7.50) K/uL Lymph # (Auto) 1.80 (1.50-4.00) K/uL [place] # (Auto) 0.47 (0.20-0.80) K/uL Eos # (Auto) 0.12 (0.04-0.40) K/uL Baso # (Auto) 0.03 (0.02-0.10) K/uL Sodium 143 (136-145) mmol/L Potassium 3.1 L (3.5-5.1) mmol/L Chloride 105 (98-107) mmol/L Carbon Dioxide 24.2 (21.0-32.0) mmol/L Anion Gap 16.9 H (5.0-15.0) mmol/L BUN 16 (8-26) mg/dL Creatinine 0.84 (0.70-1.30) mg/dL Est Cr Clr Drug Dosing 156.30 mL/min Estimated GFR (MDRD) > 60 (>60) MLS/MIN BUN/Creatinine Ratio 19.0 (6-25) Glucose 178 H D (74-100) mg/dL POC Glucose 190 H (74-110) mg/dL Calcium 8.7 (8.5-10.1) mg/dL Total Bilirubin 1.0 (0.0-1.0) mg/dL AST 16 (15-37) U/L ALT 27 (12-78) U/L Alkaline Phosphatase 17 L (46-116) U/L Total Protein 7.1 (6.4-8.2) g/dL Albumin 4.0 (3.4-5.0) g/dL Globulin 3.1 (2.2-4.2) g/dL Albumin/Globulin Ratio 1.3 (0.8-2.0) Med Orders - Current: Current Medications Insulin Aspart (Novolog) 0 unit SUBCUT TIDMEALS [facility] Last Admin: 06/17/17 08:08 Dose: Not Given Insulin Detemir (Levemir) 55 unit SUBCUT DAILY [facility] Last Admin: 06/17/17 08:02 Dose: 55 unit Ondansetron HCl (Zofran) 4 mg IV Q6H PRN PRN Reason: Nausea/Vomiting Last Admin: 06/16/17 15:29 Dose: 4 mg Sodium Chloride (Saline Flush) 10 ml FLUSH ASDIRECTED PRN PRN Reason: Keep Vein Open Last Admin: 06/16/17 19:52 Dose: 10 ml Discontinued Medications Al Hydroxide/Mg Hydroxide (Gi Cocktail) 30 ml PO ONETIME ONE Stop: 06/16/17 16:54 Last Admin: 06/16/17 17:39 Dose: 30 ml Al Hydroxide/Mg Hydroxide (Mag-Al Plus) Confirm Administered Dose 30 ml .ROUTE .STK-MED ONE Stop: 06/16/17 17:31 Last Admin: 06/16/17 17:42 Dose: Not Given Al Hydroxide/Mg Hydroxide (Gi Cocktail) 30 ml PO ONETIME ONE Stop: 06/17/17 07:01 Last Admin: 06/17/17 06:30 Dose: 30 ml Al Hydroxide/Mg Hydroxide (Mag-Al Plus) Confirm Administered Dose 30 ml .ROUTE .STK-MED ONE Stop: 06/17/17 06:13 Last Admin: 06/17/17 07:00 Dose: 10 ml Belladonna/Phenobarbital ( Elixir) 5 ml PO ONETIME ONE Stop: 06/17/17 06:31 Last Admin: 06/17/17 07:15 Dose: 5 ml Sodium Chloride (Normal Saline) 1,000 mls @ 1,000 mls/hr IV .BOLUS ONE Stop: 06/15/17 10:12 Last Admin: 06/15/17 09:30 Dose: 1,000 mls/hr Insulin Human Regular 100 unit (/ Sodium Chloride) 100 mls @ 4.87 mls/hr IV TITRATE ELSI; 0.05 UNITS/KG/HR PRN Reason: Protocol Pantoprazole Sodium 40 mg/ (Sodium Chloride) 100 mls @ 200 mls/hr IV DAILY ELSI Sodium Chloride (Normal Saline) 1,000 mls @ 125 mls/hr IV ASDIRECTED ELSI Last Admin: 06/15/17 11:43 Dose: 125 mls/hr Insulin Human Regular 100 unit (/ Sodium Chloride) 100 mls @ 4.87 mls/hr IV TITRATE ELSI; 0.05 UNITS/KG/HR PRN Reason: Protocol Last Admin: 06/15/17 17:10 Dose: 0.04 units/kg/hr, 4 mls/hr Dextrose/Sodium Chloride (Dextrose 5%-Normal Saline) 1,000 mls @ 125 mls/hr IV ASDIRECTED ELSI Last Admin: 06/16/17 01:18 Dose: 125 mls/hr Promethazine HCl 25 mg/ Sodium (Chloride) 51 mls @ 200 mls/hr IV ONETIME STA Stop: 06/16/17 17:07 Last Admin: 06/16/17 17:10 Dose: 200 mls/hr Promethazine HCl 25 mg/ Sodium (Chloride) 51 mls @ 200 mls/hr IV ONETIME ONE Stop: 06/17/17 07:15 Last Admin: 06/17/17 06:45 Dose: 200 mls/hr Insulin Aspart (Novolog) 2 unit SUBCUT ONETIME ONE Stop: 06/16/17 12:53 Last Admin: 06/16/17 13:02 Dose: 2 unit Insulin Aspart (Novolog) 300 unit .ROUTE .STK-MED ONE Stop: 06/16/17 09:01 Insulin Detemir (Levemir) 300 unit .ROUTE .STK-MED ONE Stop: 06/16/17 09:01 Insulin Human Regular (Humulin R) 4 unit SUBCUT ONETIME ONE PRN Reason: Protocol Stop: 06/16/17 00:29 Last Admin: 06/16/17 01:10 Dose: 4 unit Insulin Human Regular (Humulin R) 300 unit .ROUTE .STK-MED ONE Stop: 06/15/17 10:46 Insulin Human Regular (Humulin R) 300 unit .ROUTE .STK-MED ONE Stop: 06/16/17 01:11 Lidocaine HCl (Xylocaine 2% Viscous) Confirm Administered Dose 15 ml .ROUTE .[facility] Stop: 06/16/17 17:31 Last Admin: 06/16/17 17:42 Dose: Not Given Lidocaine HCl (Xylocaine 2% Viscous) Confirm Administered Dose 15 ml .ROUTE .[facility] ONE Stop: 06/17/17 06:12 Last Admin: 06/17/17 07:00 Dose: 15 ml Metoclopramide HCl (Reglan) Confirm Administered Dose 10 [address] .[address] .[facility] ONE Stop: 06/15/17 08:48 Last Admin: 06/15/17 09:30 Dose: 4 mg Metoclopramide HCl (Reglan) 10 mg IVPUSH ONETIME ONE Stop: 06/16/17 08:35 Last Admin: 06/16/17 08:40 Dose: 10 mg Pantoprazole Sodium (Protonix Iv) Confirm Administered Dose 40 mg .ROUTE .[facility] Stop: 06/15/17 11:20 Last Admin: 06/15/17 11:30 Dose: 40 mg Pantoprazole Sodium (Protonix Iv) 40 mg IVPUSH DAILY [facility] Stop: 06/16/17 18:00 Last Admin: 06/16/17 07:33 Dose: 40 mg Promethazine HCl (Phenergan) Confirm Administered Dose [address] Stop: 06/16/17 16:49 Last Admin: 06/16/17 17:41 Dose: Not Given Sucralfate (Carafate) Confirm Administered Dose 1 gm .[address]TE .[facility] Stop: 06/15/17 13:57 Last Admin: 06/15/17 14:00 Dose: 1 gm Sucralfate (Carafate) Confirm Administered Dose [address] .[address] .[facility] Stop: 06/15/17 19:53 Last Admin: 06/15/17 20:00 Dose: 1 gm Sucralfate (Carafate) Confirm Administered Dose 1 gm .ROUTE .[facility] Stop: 06/16/17 07:26 Last Admin: 06/16/17 08:45 Dose: Not Given Sucralfate (Carafate) 1 gm PO QIDACANDBED [facility] Stop: 06/16/17 18:00 Last Admin: 06/16/17 17:42 Dose: Not Given - Exam General: Reports: Alert, Oriented HEENT: Reports: Pupils Equal, Pupils Reactive, EOMI, Mucous Membr. Moist/Manor Lungs: Reports: Clear to Auscultation, Normal Respiratory Effort Cardiovascular: Reports: Regular Rate, Regular Rhythm GI/Abdominal Exam: Normal Bowel Sounds, No Organomegaly, Tender (vague epigastic discomfort) Back Exam: Reports: Normal Inspection, Full Range of Motion Extremities: Normal Inspection, Normal Range of Motion, Non-Tender, No Pedal Edema, Normal Capillary Refill Skin: Reports: Warm, Dry, Intact Neurological: Reports: No New Focal Deficit *Q Meaningful Use (DIS) - VTE *Q VTE Criteria *Q: - Stroke *Q Stroke Criteria *Q: - AMI *Q AMI Criteria *Q:
[2017-06-17] MEDS: Ondansetron 4 MG/2 ML SDV IV PRN (08:29)
== END 2017-06-17 08:45 | disposition home or self-care (01) | DRG 420 ==
LOC: LB.ED 08:06 → LB.MS 10:20
PROVIDERS: ADMIT Family Medicine; ATTEND Family Medicine
DX: E10.10 Type 1 diabetes mellitus with ketoacidosis without coma (principal); Z79.4 Long term (current) use of insulin; K21.9 Gastro-esophageal reflux disease without esophagitis; F32.9 Major depressive disorder, single episode, unspecified; R11.10 Vomiting, unspecified; Z88.8 Allergy status to other drugs, medicaments and biological substances; Z79.899 Other long term (current) drug therapy
CPT/HCPCS: 36415; 36600; 71046; 74177; 80048; 80053; 81001; 82009; 82150; 82803; 82962; 83690; 85025; 96360; 99285-25; A9270-GY; C9113; J1815; J2405; J2550; J2765; J7040; J7050